=== PATIENT | female | born 1970 | race American Indian/Alaskan Native ===

== ENCOUNTER 2018-09-02 22:54 | Emergency (ER) | payer MEDICARE ==
[2018-09-02 23:49] LABS: Basophils % (Auto) 0.3 % (0.0-1.8); Eosinophils # (Auto) 0.1 K/mm3 (0.0-0.4); Eosinophils % (Auto) 0.9 % (0.0-4.3); Hematocrit 32.1 % (30.3-42.9); Hemoglobin 10.5 gm/dl (10.1-14.3); Lymphocytes # (Auto) 2.2 K/mm3 (1.2-5.4); Lymphocytes % (Auto) 27.9 % (13.4-35.0); Mean Corpuscular HGB Conc 33 % (30-34); Mean Corpuscular Volume 92 fl (79-97); Monocytes # (Auto) 0.6 K/mm3 (0.0-0.8); Monocytes % (Auto) 7.9 % (0.0-7.3); Platelet Count 257 K/mm3 (140-440); Red Blood Count 3.49 M/mm3 (3.65-5.03); Red Cell Distribution Width 15.1 % (13.2-15.2)
[2018-09-03 00:08] LABS: BUN/Creatinine Ratio 14; Blood Urea Nitrogen 13 mg/dL (7-17); Calcium 9.6 mg/dL (8.4-10.2); Hemolysis Index 27
--- NOTE | 2018-09-03 01:32 | Emergency Department Report ---
ED Female HPI - General Chief complaint: Vaginal Bleeding Stated complaint: VAGINAL BLEEDING Time Seen by Provider: 09/03/18 01:12 Source: patient Mode of arrival: Ambulatory Limitations: No Limitations - History of Present Illness Initial comments: 48-year-old female with complaint of abdominal cramping and vaginal bleeding. Patient states last menstrual period was at the end of July, did not have a menstrual period in July. Patient states she took a test August 28 and it was negative. This evening, patient states she began to have for abdominal cramping, spotting. However she states when she went to bathroom she passed a large amount of blood clots. States bleeding has slowed again to spotting, however abdominal cramping remains. MD Complaint: vaginal bleeding -: This evening Location: suprapubic Radiation: other (lower back) Severity: moderate Quality: cramping Consistency: intermittent Improves with: none Worsens with: none Are you Now?: No - Related Data Previous Rx's Medication Instructions Recorded Last Taken Type Naproxen [Naprosyn] 500 mg PO BID #20 tablet 09/03/18 Unknown Rx traMADol [Ultram] 50 mg PO Q6HR PRN #7 tablet 09/03/18 Unknown Rx Allergies Allergy/AdvReac Type Severity Reaction Status Date / Time No Known Allergies Allergy Verified 09/02/18 23:22 ED Review of Systems ROS: Stated complaint: VAGINAL BLEEDING Other details as noted in HPI Comment: All other systems reviewed and negative Gastrointestinal: abdominal pain Genitourinary: abnormal menses ED Past Medical Hx - Past Medical History Previous Medical History?: No - Surgical History Past Surgical History?: No - Social History Smoking Status: Never Smoker Substance Use Type: None - Medications Home Medications: Home Medications Medication Instructions Recorded Confirmed Last Taken Type Naproxen [Naprosyn] 500 mg PO BID #20 tablet 09/03/18 Unknown Rx traMADol [Ultram] 50 mg PO Q6HR PRN #7 tablet 09/03/18 Unknown Rx ED Physical Exam - General Limitations: No Limitations General appearance: alert, in no apparent distress - Head Head exam: Present: atraumatic, normocephalic - Eye Eye exam: Present: normal appearance - ENT ENT exam: Present: mucous membranes moist - Neck Neck exam: Present: normal inspection - Respiratory Respiratory exam: Present: normal lung sounds bilaterally. Absent: respiratory distress - Cardiovascular Cardiovascular Exam: Present: regular rate, normal rhythm - GI/Abdominal GI/Abdominal exam: Present: soft, tenderness (suprapubic). Absent: distended - Extremities Exam Extremities exam: Present: normal inspection - Neurological Exam Neurological exam: Present: alert, oriented X3 - Psychiatric Psychiatric exam: Present: normal affect, normal mood - Skin Skin exam: Present: warm, dry, intact, normal color ED Course Vital Signs 09/03/18 09/03/18 09/03/18 01:41 03:44 04:14 Temperature 98.4 F 97.7 F Pulse Rate 97 H 91 H Respiratory 16 18 16 Rate Blood Pressure 164/86 136/86 [Left] O2 Sat by Pulse 97 100 Oximetry 09/03/18 04:44 Temperature Pulse Rate Respiratory 18 Rate Blood Pressure [Left] O2 Sat by Pulse Oximetry ED Medical Decision Making - Lab Data Result diagrams: 09/02/18 23:33 09/02/18 23:33 - Radiology Data Radiology results: report reviewed - Medical Decision Making - vitals normal - Hb normal - no further heavy bleeding - US shows fibroid uterus - this is likely pt's menstrual period - outpt f/u advised - Differential Diagnosis miscarriage, menstrual period, DUB Critical care attestation.: If time is entered above; I have spent that time in minutes in the direct care of this critically ill patient, excluding procedure time. ED Disposition Clinical Impression: Uterine fibroid Disposition: - TO HOME OR SELFCARE Is pt being admited?: No Condition: Stable Instructions: Uterine Fibroids (ED) Prescriptions: Naproxen [Naprosyn] 500 mg PO BID #20 tablet traMADol [Ultram] 50 mg PO Q6HR PRN #7 tablet PRN Reason: Pain Referrals: DARIO BA MD [Primary Care Provider] - 3-5 Days Time of Disposition: 05:40
[2018-09-03 02:26] LABS: Bilirubin,Urine NEG (Negative)
[2018-09-03 02:27] LABS: Blood,Urine LG (Negative); Color,Urine Red (Yellow); RBC,Urine > 182.0 /HPF (0.0-6.0); Urobilinogen,Urine < 2.0 mg/dL (<2.0)
[2018-09-03] MEDS ORDERED: ULTRAM PO ONE (03:42)
[2018-09-03] MEDS ORDERED: ULTRAM ONE (03:45)
[2018-09-03 04:15] VITALS: BP 136/86
--- NOTE | 2018-09-03 05:23 | Ultrasound Report ---
PROCEDURE: US TRANSVAGINAL TECHNIQUE: Real-time transvaginal sonography in multiple planes of the pelvis was performed with mathieu SYLLETA documentation. Color Doppler images were obtained. HISTORY: pain, vag bleeding COMPARISONS: None . FINDINGS: UTERUS Size: 12.3 x 8.2 x 0.6 cm. Endometrial thickness: Obscured. Orientation: anteverted. Cervix: Normal. Fibroids/masses: There are multiple uterine fibroids measuring up to 4.9 cm.. RIGHT Ovary: 2.3 x 2 x 2 cm. Appearance: Normal. There is no mass. Blood flow is normal. LEFT Ovary: The left ovary was not identified. Pelvic fluid: None. Other: None. IMPRESSION: There are uterine fibroids. Right ovary is unremarkable without evidence of torsion. Lef t ovary is not seen. There is no free pelvic fluid.. This document is electronically signed by Hebert Gongora MD., September 03 2018 05:21:03 AM ET
--- NOTE | 2018-09-03 05:24 | Ultrasound Report ---
PROCEDURE: US PELVIS DUPLEX DOPPLER COMP TECHNIQUE: Color Doppler images were obtained. HISTORY: pain, vag bleeding COMPARISONS: None . FINDINGS: UTERUS Size: 12.3 x 8.2 x 0.6 cm. Endometrial thickness: Obscured. Orientation: anteverted. Cervix: Normal. Fibroids/masses: There are multiple uterine fibroids measuring up to 4.9 cm.. RIGHT Ovary: 2.3 x 2 x 2 cm. Appearance: Normal. There is no mass. Blood flow is normal. LEFT Ovary: The left ovary was not identified. Pelvic fluid: None. Other: None. IMPRESSION: There are uterine fibroids. Right ovary is unremarkable without evidence of torsion. Lef t ovary is not seen. There is no free pelvic fluid.. This document is electronically signed by Hebert Gongora MD., September 03 2018 05:21:51 AM ET
== END 2018-09-03 05:55 | disposition home or self-care (01) ==
LOC: ED 22:54
DX: D25.9 Leiomyoma of uterus, unspecified (principal)
CPT/HCPCS: 36415; 76830; 80048; 81001; 84702; 85025; 93975